=== PATIENT | female | born 1980 | race Caucasian/White ===

== ENCOUNTER → 2020-03-09 15:11 | Outpatient (BNVA) | payer BC, SELFPAY | PROVIDERS: Family Provider Family Medicine; PCP Family Medicine; Visit Provider Nurse Practitioner Family | DX: Z20.828 Contact with and (suspected) exposure to other viral communicable diseases (principal) | CPT/HCPCS: 87635 ==

== ENCOUNTER 2021-01-19 23:39 | Emergency (ER) | payer OTHER, BC, SELFPAY ==
[2021-01-19 23:50] VITALS: BP 146/72; PULSE 109; RESP 18; TEMP 36.7; O2SAT 97; BMI 40.1
--- NOTE | 2021-01-20 00:11 | ED_ITS ---
HPI - Animal Bite General: Chief Complaint: Animal Bite Stated Complaint: animal bite r leg Time Seen by Provider: 01/19/21 23:55 History of Present Illness: HPI narrative: Patient is a 40-year-old female comes to the ED with dog bite on right leg. Patient was outside walking one of her dogs and a neighbors dog which is a pitbull mix came up and attacked patient. It bit patient and her right thigh. The neighbors that hold the dog were not cooperative and did not answer door and provide any history of dog's vaccinations. Patient says her leg is sore and would like to start rabies vaccination series. Patient has 2 puncture wound bites to back of right thigh Associated symptoms: Deny chills, fever(s) or headache(s) Review of Systems Const: Denies: fever(s), chills or fatigue Eyes: Denies: change in vision or eye discomfort ENMT: Denies: throat pain, odynophagia, nasal discharge or nasal congestion Card: Denies: chest pain, palpitations, edema, swelling of feet/ankles, dyspnea on exertion or orthopnea Resp: Denies: dyspnea, productive cough or non-productive cough GI: Denies: abdominal pain, nausea, vomiting, diarrhea, constipation or hematochezia : Denies: flank pain, dysuria or hematuria Musc: Denies: neck pain, back pain or extremity swelling Skin/Breast: Reports: new lesions (2 puncture wound bites to patient's right thigh.); Denies: rash Neuro: Denies: headache(s), numbness in extremities or weakness in extremities PFS ED PFSH: Social History Smoking and tobacco status: never smoked Alcohol intake: never Physical Exam Const: COMMON NORMALS: no acute distress, patient oriented x3 and alert GENERAL APPEARANCE: cooperative and comfortable HENMT: COMMON NORMALS: normocephalic HEAD & SCALP: normocephalic MOUTH: Normal oral and palatal mucosa present THROAT: posterior oropharynx normal and uvula midline Neck/C-Spine: COMMON NORMALS: supple GENERAL: Yes normal visual inspection Resp: COMMON NORMALS: normal respiratory effort, No retractions, No use of accessory muscles and clear to auscultation bilaterally AUSCULTATION: clear to auscultation bilaterally Cardio: COMMON NORMALS: regular rate, regular rhythm, S1 normal heart sound present, S2 normal heart sound present, No gallops present (Cardio), No clicks present (Cardio), No murmurs present (Cardio) and Peripheral pulses 2+ throughout RATE: regular rate RHYTHM: regular rhythm HEART SOUNDS: S1 normal heart sound present and S2 normal heart sound present PERIPHERAL PULSES: Peripheral pulses 2+ throughout GI: COMMON NORMALS: Normal to inspection, nondistended, normoactive bowel sounds present, Soft to palpation, non-tender and no masses PALPATION: Yes Soft to palpation : COMMON NORMALS: Yes no CVA tenderness BLADDER/KIDNEY EXAM: Yes no CVA tenderness Back/Pelvis: COMMON NORMALS: no CVA tenderness Extremity: NARRATIVE EXTREMITY EXAM: Patient has 2 puncture wounds to the medial aspect of right lower thigh along with a superficial abrasion. There is some ecchymosis surrounding puncture wounds. Minimal bleeding noted. No purulent drainage seen. No erythema or warmth seen. Bite area is tender upon palpation. GENERAL: Yes normal exam except as noted Neuro: COMMON NORMALS: patient oriented x3 and moves all extremities SENSORIUM/ORIENTATION: Yes alert Skin: NARRATIVE SKIN EXAM: Patient has 2 puncture wounds to the medial aspect of right lower thigh along with a superficial abrasion. There is some ecchymosis surrounding puncture wounds. Minimal bleeding noted. No purulent drainage seen. No erythema or warmth seen. Bite area is tender upon palpation. GENERAL SKIN EXAM: dry skin Course ED course: Patient's dog bite wounds were irrigated extensively with normal saline and the skin was cleaned with CHG swab and iodine swab. Vital Signs: Vital signs: Vital Signs Temperature 98.1 F 01/20/21 01:58 Pulse Rate 109 H 01/19/21 23:50 Respiratory Rate 18 01/20/21 01:58 Blood Pressure 146/72 01/19/21 23:50 Pulse Oximetry 97 01/20/21 01:58 MDM - Animal Bite MDM Narrative: Medical decision making narrative: Patient comes to the ED with a dog bite on medial aspect of right thigh. Total right has 2 small puncture wounds along with a superficial abrasion. Patient was bit by a neighbors dog and she is unsure of vaccination history wants to start the rabies postexposure prophylaxis series. Bite wounds were irrigated extensively with normal saline and cleaned with CHG swab and iodine swab. Triple antibiotic ointment was placed on wounds and then bandaged up. Patient was given the rabies Ig and rabies vaccine while here in the ED. She was given a dose of clindamycin and discharged home with a prescription for clindamycin. She was told to return to the ED or urgent care to get her follow-up rabies vaccinations on day 3, 7 and 14. Return to ED precautions given. Patient understood and agreed with plan. Discharge Plan Discharge Patient Disposition: Home Clinical Impression: Need for prophylactic vaccination and inoculation against rabies Dog bite Qualifiers: Encounter type: initial encounter Qualified Code(s): W54.0XXA - Bitten by dog, initial encounter Condition: Stable Prescriptions: New clindamycin HCl 150 mg capsule 300 mg PO QID 7 Days Qty: 56 RF: 0 No Action No Known Home Medications RF: 0 Discharge Orders: Discharge ED (Routine); Ordered 01/20/21 Ordered By: Norris Cross Referrals: Kishor Bailey DO [Primary Care Provider] - Discharge Diet: Regular Discharge Activity: Resume usual activity Patient Instructions: Rabies Vaccine (Injection), Rabies Immune Globulin (Injection), Animal Bite (ED) Activity Restrictions/Additional Instructions: Follow-up with medical provider as directed. Clean plate area daily with soap and water and apply triple antibiotic ointment and bandage as well. Apply cold pack on lesion area to help with any swelling. Return to the ED or urgent care for rabies vaccination dose on day 3, 7 and 14. take medications as prescribed. Return to the ER or your medical provider if condition worsens. Please read and understand discharge instructions. If any questions, please ask. Coding Level of Care Code ED [employer] Helper for Gloria Starks Exam Comprehensive
[2021-01-20] MEDS: rabies vaccine 2.5 unit SDV IM (00:58)
[2021-01-20] MEDS: neomycin-poly-bacitracin oint 0.9 gm Pkt 1 APPLIC TOPICAL (00:58)
[2021-01-20] MEDS: HYDROcodone-acetaminophen 5-325 mg Tablet 1 TAB PO (00:58)
[2021-01-20] MEDS: clindamycin 150 mg Capsule 300 MG PO (01:13)
--- NOTE | 2021-01-20 01:53 | PC.NURSE ---
zaheer, 4x4, rene, todd applied to wound after infiltration of rabies immune globlin. pt dressing herself at this time and d/c per wheelchair.
[2021-01-20 01:58] VITALS: RESP 18; TEMP 36.7; O2SAT 97
== END 2021-01-20 02:01 | disposition home or self-care (01) ==
PROVIDERS: Emergency Provider Physician Assistant; PCP Family Medicine
DX: S71.151A Open bite, right thigh, initial encounter (principal); W54.0XXA Bitten by dog, initial encounter; Z29.14 Encounter for prophylactic rabies immune globulin; Z20.3 Contact with and (suspected) exposure to rabies; Z23 Encounter for immunization
CPT/HCPCS: 90375; 90471; 90675; 96372; 99283

== ENCOUNTER → 2021-11-24 15:45 | Outpatient (BNVA) | payer OTHER, BC, SELFPAY | PROVIDERS: PCP Family Medicine; Visit Provider Clinical Nurse Specialist Adult Health | DX: M25.50 Pain in unspecified joint (principal) | CPT/HCPCS: 80053; 84439; 84443; 84481; 85025; 85651; 86140; 86160; 86162; 86235; 86255; 86376 ==

== ENCOUNTER → 2022-01-08 15:34 | Outpatient (BNVA) | payer OTHER, BC, SELFPAY | PROVIDERS: PCP Family Medicine; Referring Provider Family Medicine; Visit Provider Obstetrics & Gynecology | DX: Z12.4 Encounter for screening for malignant neoplasm of cervix (principal) | CPT/HCPCS: 87624 ==

== ENCOUNTER 2022-07-23 14:30 | Outpatient (CLI) | payer OTHER, BC, SELFPAY | END 2022-07-23 14:31 | disposition home or self-care (01) | PROVIDERS: PCP Family Medicine; Visit Provider Specialist | DX: J38.3 Other diseases of vocal cords (principal) | CPT/HCPCS: 94070; J7613; J7674 ==

== ENCOUNTER 2022-10-06 11:45 | Outpatient (CLI) | payer BC, OTHER, SELFPAY ==
--- NOTE | 2022-10-06 11:55 | CT_ITS ---
WS: [id number] CT NECK TECHNIQUE: Contrast-enhanced CT of the neck with coronal and sagittal reformatted images. CLINICAL INFORMATION: CHRONIC LARYNGITIS COMPARISON: None. DLP: 256.[address] scans at [facility] use at least one of these dose optimization techniques: automated e xposure control; mA and/or kV adjustment per patient size (includes targeted exams where dose is matc hed to clinical indication); or iterative reconstruction. FINDINGS: Normal parotid glands. Submandibular glands are normal. Mastoid air cells well aerated. Paranasal sin uses are well aerated. Normal posterior nasopharynx. Normal parapharyngeal fat. No evidence of suprag lottic or glottic mass. Normal thyroid gland. Lung apices are well aerated. No cervical lymphadenopat hy. Straightening of the normal cervical lordosis. No other suspicious findings. CT/CT neck w con* [id number] IMPRESSION: 1. No evidence of supraglottic or glottic mass. 2. Normal subglottic airway. 3. No cervical lymphadenopathy. 4. Normal salivary glands. 5. Paranasal sinuses are partially visualized and appear well aerated. Mastoid air cells are well aerated.
--- NOTE | 2022-10-06 11:56 | CT_ITS ---
WS: [id number] CT chest w con* [id number] HISTORY: CHRONIC LARYNGITIS TECHNIQUE: Axial imaging performed through the thorax. Coronal and sagittal reformats are submitted. All CT scans at [facility] use at least one of these dose optimization techniques: automated exposure control; mA and/or kV adjustment per patient size (includes targeted exams where dose is mat ched to clinical indication); or iterative reconstruction. CONTRAST: Omnipaque 350; 75 mL IV. DLP: 652.34 mGy.cm COMPARISON: None available. Lungs and central airway: Normal. Pleura: Normal. No pleural effusion. Heart and pericardium: Normal size heart with no pericardial effusion. Mediastinum and marilyn: No mediastinum or hilar adenopathy. Vessels: Normal size aortic and pulmonary artery. No coronary artery calcifications. Chest wall and lower neck: No soft tissue masses. Upper abdomen: Small hiatal hernia. Marked enlargement of the liver extends to the LEFT of midline an d wraps around the spleen. Hepatic steatosis. No adrenal mass. Osseous structures: No destructive process. CT/CT chest w con* [id number] IMPRESSION: 1. No pulmonary nodules, adenopathy or pneumonia. 2. Hepatic steatosis and hepatomegaly. 3. No adenopathy.
[2022-10-06] MEDS: iohexol 350 mg/mL 500 mL Btl (per mL) IV ×2 (12:15→12:20)
== END 2022-10-06 11:46 | disposition home or self-care (01) ==
LOC: RAD 11:50
PROVIDERS: PCP Electrodiagnostic Medicine; Visit Provider Specialist
DX: J37.0 Chronic laryngitis (principal); R49.0 Dysphonia; R16.0 Hepatomegaly, not elsewhere classified; K76.0 Fatty (change of) liver, not elsewhere classified
CPT/HCPCS: 70491; 71260; Q9967

== ENCOUNTER 2023-05-31 07:44 | Outpatient (CLI) | payer BC, SELFPAY ==
--- NOTE | 2023-05-31 07:45 | MM_ITS ---
WS: [id number] SCREENING DIGITAL TOMOSYNTHESIS MAMMOGRAM WITH CAD HISTORY: SCREENING COMPARISON: None available. Bilateral CC and MLO with tomosynthesis views submitted. Synthetic mammography reviewed. Computer aid ed detection analyzed. Breast composition: There are scattered areas of fibroglandular density. No suspicious masses, microc alcifications or architectural distortion. IMPRESSION: MM/[place] [id number] BI-RADS: 1-Negative FOLLOW UP: 1 Year Follow-up
== END 2023-05-31 07:45 | disposition home or self-care (01) ==
LOC: RAD 07:44
PROVIDERS: PCP Electrodiagnostic Medicine; Visit Provider Electrodiagnostic Medicine
DX: Z12.31 Encounter for screening mammogram for malignant neoplasm of breast (principal)
CPT/HCPCS: 77063; 77067

== ENCOUNTER → 2024-04-05 08:49 | Outpatient (BNVA) | payer BC, SELFPAY | PROVIDERS: PCP Electrodiagnostic Medicine; Visit Provider Podiatrist Foot & Ankle Surgery | DX: M79.671 Pain in right foot; M79.672 Pain in left foot; M72.2 Plantar fascial fibromatosis; S93.492A Sprain of other ligament of left ankle, initial encounter; W18.40XA Slipping, tripping and stumbling without falling, unspecified, initial encounter | CPT/HCPCS: 73630 ==